=== PATIENT | male | born 1980 | race Caucasian/White ===

== ENCOUNTER 2022-09-21 20:05 | Emergency (ER) | payer OTHER ==
[~2022-09-21] VITALS: Ht 165.1 cm; Wt 70.3 kg
--- NOTE | 2022-09-21 20:50 | NUR ---
Pt is noted alert, responsive as he came in C/O Rightr Leg Tick Bites x2days and S/P Hiking. Pt care continue as he wilol be seen by .
[2022-09-21] MEDS ORDERED: DOXY-326 PO (20:58)
--- NOTE | 2022-09-21 21:21 | NUR ---
Pt is noted off the unit as he is been discharge to home with alll discharge instructions given with no S/S off Distress.
[2022-09-21 21:22] VITALS: BP 128/74; TEMP 98; O2SAT 98
== END 2022-09-21 21:23 | disposition home or self-care (01) ==
LOC: ER 20:05
DX: S70.261A Insect bite (nonvenomous), right hip, initial encounter (principal); S80.861A Insect bite (nonvenomous), right lower leg, initial encounter; Z79.2 Long term (current) use of antibiotics; W57.XXXA Bitten or stung by nonvenomous insect and other nonvenomous arthropods, initial encounter; Y93.89 Activity, other specified; Y92.89 Other specified places as the place of occurrence of the external cause; Y99.8 Other external cause status
CPT/HCPCS: A4663